=== PATIENT | male | born 1995 | race Two or more races ===

== ENCOUNTER 2019-12-04 12:09 | Emergency (ER) | payer MEDICAID ==
[~2019-12-04] VITALS: Ht 180.3 cm; Wt 99.8 kg
[~2019-12-04 12:09] MED LIST: AMPH20TA20 PO; AMPH30TA3 PO
[2019-12-04] MEDS ORDERED: ketorolac trometh. 30mg/ml inj. IM ONE (12:40)
[2019-12-04 12:55] VITALS: BP 139/90
== END 2019-12-04 12:57 | disposition home or self-care (01) ==
LOC: ER 12:09
DX: M54.5 Low back pain (principal); Z87.442 Personal history of urinary calculi; Z79.899 Other long term (current) drug therapy
CPT/HCPCS: 96372; 99283; J1885